=== PATIENT | male | born 1975 | race African-American/Black ===

== ENCOUNTER → 2020-12-17 13:49 | Outpatient (BNVA) | payer OTHER, SELFPAY | PROVIDERS: PCP Physician Assistant; Referring Provider Physician Assistant; Visit Provider Physician Assistant | DX: E66.01 Morbid (severe) obesity due to excess calories (principal); K21.9 Gastro-esophageal reflux disease without esophagitis; Z68.43 Body mass index [BMI] 50.0-59.9, adult | CPT/HCPCS: 99202 ==

== ENCOUNTER → 2021-01-10 08:13 | Outpatient (BNVA) | payer OTHER, SELFPAY | PROVIDERS: PCP Physician Assistant; Visit Provider Dietitian, Registered | DX: E66.01 Morbid (severe) obesity due to excess calories (principal) | CPT/HCPCS: 97802 ==

== ENCOUNTER 2021-01-11 10:37 | Outpatient (REF) | payer OTHER, SELFPAY ==
--- NOTE | ~2021-01-11 | US_ITS ---
EXAMINATION: US COMPLETE ABDOMEN WITH LIVER ELASTOGRAPHY CLINICAL INFORMATION: GERD without esophagitis. COMPARISON: None. TECHNIQUE: Real-time imaging of the abdominal viscera. Noninvasive ultrasound liver fibrosis assessment is performed using Chani ElastPQ point quantification shear wave elastography (pSWE) with a C5-2 MHz transducer. Multiple elastography samples are obtained. FINDINGS: PANCREAS: Normal. The visualized pancreatic head and body are normal in appearance. The remainder of the pancreas is obscured from visualization by the overlying bowel gas. ABDOMINAL AORTA: The proximal, middle, and distal aortic segments are normal in caliber. INFERIOR VENA CAVA: Visualized portions are normal. LIVER: The liver demonstrates normal size, contour and increased echogenicity. There is focal fatty sparing near the common bile duct. No focal lesion or intrahepatic biliary duct dilatation. The right lobe measures 20.0 cm in length. The left lobe measures 12.9 cm in length. Portal flow is hepatopedal. Shear wave liver elastography median stiffness is 1.62 m/s (reference: normal median stiffness is 1.3 m/s or less). IQR/median stiffness to assess sampling precision is 0.36 (reference: good quality data set is IQR/median stiffness of 0.15 or less). GALLBLADDER: The gallbladder is physiologically distended without evidence of stones, sludge, polyps, wall thickening, or pericholecystic fluid. COMMON BILE DUCT: Normal in caliber measuring 0.3 cm in diameter. RIGHT KIDNEY: There is a small anechoic cyst measuring 7 x 8 x 7 mm. No hydronephrosis. No renal calculi or focal parenchymal lesions. The kidney measures 12.4 cm in maximum dimension. LEFT KIDNEY: Normal. No hydronephrosis. No renal calculi or focal parenchymal lesions. The kidney measures 12.7 cm in maximum dimension. SPLEEN: Normal. The spleen measures 10.1 cm in maximum dimension. FREE FLUID: None. US/US abdomen comp w elastography IMPRESSION: 1. Diffuse hepatic steatosis with areas of focal fatty sparing near the CBD. 2. The pancreas is not visualized. 3. Small right renal cyst. 4. Liver elastography: Median liver stiffness measures 1.62 m/s suggestive of cACLD. The sampling of the liver tissue is suboptimal. REFERENCE: Society of Radiologists in Ultrasound Liver Stiffness Thresholds (2020): LIVER STIFFNESS THRESHOLDS: *Liver Stiffness equal or less than 1.3 m/s: High probability of being normal. *Liver Stiffness less than 1.7 m/s: In the absence of other known clinical signs, rules out compensated advanced chronic liver disease. *Liver Stiffness 1.7-2.1 m/s: Suggestive of compensated advanced chronic liver disease but need further test for confirmation. *Liver Stiffness over 2.1 m/s: Rules in compensated advanced chronic liver disease. *Liver Stiffness over 2.4 m/s: Suggestive of clinically significant portal hypertension. QUALITY OF DATA SET: *IQR/Median value equal or less than 0.15 implies a quality data set. *IQR/Median value over 0.15 implies a poor quality data set. SIGNIFICANT CHANGE FROM PRIOR EXAM: Significant change if liver stiffness measurement is 10% or greater from prior exam. OTHER CONSIDERATIONS: The stage of liver fibrosis may be overestimated in the setting of acute hepatitis, liver inflammation, elevated liver function tests, hepatic vascular congestion, obstructive cholestasis, non-fasting state, and infiltrative diseases such as amyloidosis and lymphoma. In some patients with NAFLD, the liver stiffness thresholds for compensated advanced chronic liver disease may be lower. In causes other than viral hepatitis and NAFLD, liver stiffness thresholds are not well established.
--- NOTE | ~2021-01-11 | XR_ITS ---
EXAMINATION: XR CHEST 2 VIEWS CLINICAL INFORMATION: Gastroesophageal reflux disease. COMPARISON: None. TECHNIQUE: Frontal and lateral views of the chest were obtained. FINDINGS: The heart, great vessels, pulmonary vasculature and mediastinum are normal. The lungs show no focal infiltrate, effusion or pneumothorax. There is no acute osseous abnormality. There is multi-level thoracic spondylosis. XR/XR chest 2V IMPRESSION: No active cardiopulmonary disease.
[2021-01-12 14:41] LABS: H Pylori Breath Test NOT DETECTED (NOT DETECTED)
== END 2021-01-11 10:38 | disposition home or self-care (01) ==
LOC: HO.US 10:37
PROVIDERS: Physician Assistant; Visit Provider Surgery
DX: Z01.818 Encounter for other preprocedural examination (principal); E66.01 Morbid (severe) obesity due to excess calories; Z68.43 Body mass index [BMI] 50.0-59.9, adult; K21.9 Gastro-esophageal reflux disease without esophagitis
CPT/HCPCS: 71046; 76705; 76981; 83013; 99211

== ENCOUNTER 2021-01-20 10:30 | Outpatient (REF) | payer OTHER, SELFPAY ==
--- NOTE | ~2021-01-20 | FL_ITS ---
EXAMINATION: XR GI SERIES CLINICAL INFORMATION: Gastroesophageal reflux disease without esophagitis. COMPARISON: None. TECHNIQUE: Routine upper GI air-contrast study was performed in upright and lying position. FINDINGS: Following oral administration of thick barium and effervescent granules, there is normal propagation of bolus from the oral cavity through the pharynx and esophagus and into the stomach without any evidence of obstruction, narrowing or stricture. On placing patient supine and prone lying, the course, caliber and peristalsis of the stomach is normal. There is moderate gastroesophageal reflux but no hiatal hernia. There are moderate secretions visualized within the stomach. The mucosal pattern of the stomach and the duodenum is otherwise unremarkable. The course, caliber and peristalsis of stomach and duodenum are normal. FLUOROSCOPY TIME: 1.4 minutes. DOSE AREA PRODUCT: 62.063 uGy-m2 (microgray-meter squared). FL/FL upper GI series IMPRESSION: Moderate gastric secretions. Patient denies anything by mouth from last night. Moderate gastroesophageal reflux without hiatal hernia.
--- NOTE | 2021-01-20 11:10 | ECG_ITS ---
Test Reason : GERD Blood Pressure : / mmHG Vent. Rate : 076 BPM Atrial Rate : 076 BPM P-R Int : 144 ms QRS Dur : 094 ms QT Int : 382 ms P-R-T Axes : 044 001 016 degrees QTc Int : 429 ms Normal sinus rhythm Normal ECG No previous ECGs available Referred By: Mena Cardoso Electronically Signed By:LAZARO CLAYTON
[2021-01-20 12:04] LABS: MANUAL DIFF FLAG NO
[2021-01-20 12:09] LABS: Basophils Percent Auto 0.4 % (0-2); Eosinophils Percent Auto 0.4 % (0-4); Hemoglobin 14.6 g/dl (14.0-18.0); Imm Gran Abs Auto 0.01 X10*3/uL (0.00-0.03); Imm Gran Pct Auto 0.2 % (0.0-0.4); Lymphocytes Absolute Auto 2.3 X10*3/uL (1.2-4.9); Lymphocytes Percent Auto 48.6 % (20-40); Mean Corpuscular HGB Conc 31.7 g/dl (31.0-36.0); Mean Corpuscular Hemoglobin 27.7 pg (27.0-33.0); Mean Corpuscular Volume 87.3 fL (80-98); Mean Platelet Volume 11.1 fL (9.4-12.4); Monocytes Absolute Auto 0.4 X10*3/uL (0.1-1.2); Monocytes Percent Auto 9.1 % (2-11); Neutrophils Percent Auto 41.3 % (45-73); Platelet Count 238 X10*3/uL (160-400); Red Blood Count 5.27 X10*6/uL (4.60-5.80); Red Cell Distribution Width 15.6 % (11.0-16.0); White Blood Count 4.7 X10*3/uL (4.8-10.8)
[2021-01-20 12:15] LABS: Estimated Average Glucose 111 mg/dL; Hemoglobin A1c % 5.5 %
[2021-01-20 12:36] LABS: Alanine Aminotransferase 24 U/L (0-40); Albumin Level 4.1 g/dL (3.5-5.0); Alkaline Phosphatase 42 U/L (39-117); Anion Gap 14 (12-20); Aspartate Amino Transferase 22 U/L (5-37); Bilirubin Total 0.5 mg/dL (0.0-1.0); Blood Urea Nitrogen 9 mg/dL (9-16); C Reactive Protein 2.35 mg/dL (< or = 0.50); Calcium 9.4 mg/dL (8.4-10.2); Carbon Dioxide 24 mmol/L (22-29); Chloride 108 mmol/L (96-108); Cholesterol 254 mg/dL; Estimated Glomerular Filt Rate > 60; Glucose Fasting 98 mg/dL (60-99); HDL Cholesterol 47 mg/dL; Iron 48 mcg/dL (45-160); LDL Cholesterol Calculated 191 mg/dl; Percent Iron Saturation 16 % (15-50); Sodium 142 mmol/L (135-145); Total Iron Binding Capacity 305 mcg/dL (228-428); Total Protein 7.8 g/dL (6.5-8.0); Triglycerides 83 mg/dL; Unsaturated Iron Binding 257 ug/dL
[2021-01-20 12:57] LABS: Ferritin 85 ng/mL (20-250); TSH reflex Free T4 2.15 uIU/mL (0.32-4.0); Vitamin D 25-OH Total 8.7 ng/mL (>30)
[2021-01-20 13:07] LABS: Vitamin B12 230 pg/mL (200-900)
[2021-01-25 05:43] LABS: Zinc 79 mcg/dL (60-130)
== END 2021-01-20 10:31 | disposition home or self-care (01) ==
LOC: HO.XRAY 10:30
PROVIDERS: Absent Provider Physician Assistant; PCP Physician Assistant; Visit Provider Surgery
DX: Z01.818 Encounter for other preprocedural examination (principal); E66.01 Morbid (severe) obesity due to excess calories; Z68.43 Body mass index [BMI] 50.0-59.9, adult; K21.9 Gastro-esophageal reflux disease without esophagitis
CPT/HCPCS: 36415; 74240; 80053; 80061; 82306; 82607; 82728; 82746; 83036; 83525; 83540; 84425; 84443; 84630; 85025; 86140; 93005

== ENCOUNTER → 2021-02-08 08:18 | Outpatient (BNVA) | payer OTHER, SELFPAY | PROVIDERS: PCP Physician Assistant; Referring Provider Physician Assistant; Visit Provider Dietitian, Registered | DX: E66.01 Morbid (severe) obesity due to excess calories (principal) | CPT/HCPCS: 97803 ==

== ENCOUNTER → 2021-03-09 08:10 | Outpatient (BNVA) | payer OTHER, SELFPAY | PROVIDERS: PCP Physician Assistant; Referring Provider Physician Assistant; Visit Provider Dietitian, Registered | DX: E66.01 Morbid (severe) obesity due to excess calories (principal) | CPT/HCPCS: 97803 ==

== ENCOUNTER → 2021-04-18 08:25 | Outpatient (BNVA) | payer OTHER, SELFPAY | PROVIDERS: PCP Physician Assistant; Referring Provider Surgery; Visit Provider Dietitian, Registered | DX: E66.9 Obesity, unspecified (principal) | CPT/HCPCS: 97803 ==

== ENCOUNTER → 2021-04-27 08:01 | Outpatient (BNVA) | payer OTHER, SELFPAY | PROVIDERS: PCP Physician Assistant; Visit Provider Physician Assistant ==

== ENCOUNTER → 2021-06-03 08:10 | Outpatient (BNVA) | payer OTHER, SELFPAY | PROVIDERS: PCP Physician Assistant; Visit Provider Physician Assistant ==